=== PATIENT | female | born 1970 | race Caucasian/White ===

== ENCOUNTER 2020-02-08 09:26 | Emergency (ER) | payer OTHER, SELFPAY | END 2020-02-08 09:48 | disposition home or self-care (01) | LOC: ERS 09:26 | DX: R05 Cough (principal); Z20.828 Contact with and (suspected) exposure to other viral communicable diseases | CPT/HCPCS: 87635; 99283; U0003 ==

== ENCOUNTER 2020-05-14 07:36 | Emergency (ER) | payer OTHER, SELFPAY ==
[2020-05-14 17:54] LABS: SARS-CoV-2 MS2 Positive; SARS-CoV-2 N Gene Positive; SARS-CoV-2 S Gene Negative; SARS-CoV-2 by NAA DETECTED (NotDetected); SARS-CoV-2 orf1ab Positive
== END 2020-05-14 08:28 | disposition home or self-care (01) ==
LOC: ERS 07:36
DX: U07.1 COVID-19 (principal); I10 Essential (primary) hypertension
CPT/HCPCS: 87635; 99284; U0003

== ENCOUNTER 2020-05-17 21:19 | Observation (INO) | payer OTHER, SELFPAY ==
[2020-05-17] MEDS ORDERED: Ketorolac Tromethamine 30 MG/ML VIAL ONE (22:14)
[2020-05-17 22:21] LABS: BHCG - Serum Negative (NEGATIVE); Pregs Control Background? CLEAR/WHITE (CLR/WHITE); Pregs Control Bar Appear? YES (CONTROL BAR)
[2020-05-17 22:33] LABS: #Basophils 0.1 thou/uL (0.0-0.2); #Eosinphils 0.2 thou/uL (0.0-0.7); #Monocytes 0.8 thou/uL (0.11-0.59); #Neutrophils 5.4 thou/uL (1.40-6.50); %Basophils 0.8 % (0.0-1.0); %Eosinophils 2.7 % (0.0-10.0); %Lymphocytes 23.6 % (21.0-51.0); %Monocytes 9.5 % (0.0-10.0); %Neutrophils 63.4 % (42.0-75.0); Hemoglobin 12.1 g/dL (12.0-16.0); Mean Corpuscular Hemoglobin 27.1 pg (27.0-31.0); Mean Corpuscular Volume 84.6 fL (78.0-98.0); Mean Platelet Volume 8.9 fL (7.4-10.4); Platelet Count 210 thou/uL (130-400); RBC Distribution Width 12.8 % (11.5-14.5); Red Blood Cell (RBC) Count 4.49 mill/uL (4.20-5.40); White Blood Cell (WBC) Count 8.5 thou/uL (4.8-10.8)
[2020-05-17 22:55] LABS: ALT (SGPT) 15 U/L (8-55); AST (SGOT) 18 U/L (5-34); Albumin 3.9 g/dL (3.5-5.0); Alkaline Phosphatase 35 U/L (40-110); Anion Gap 14 mmol/L (10-20); BUN (Urea Nitrogen) 22 mg/dL (7.0-18.7); Bilirubin, Total 0.4 mg/dL (0.2-1.2); Calc. Creatinine Clearance 0 mL/min (70-130); Calcium 8.7 mg/dL (7.8-10.44); Carbon Dioxide 23 mmol/L (22-29); Chloride 107 mmol/L (98-107); Estimated GFR-MDRD 59; Globulin 2.9 g/dL (2.4-3.5); Glucose 110 mg/dL (70-105); Potassium 3.9 mmol/L (3.5-5.1); Protein, Total 6.8 g/dL (6.0-8.3); Sodium 140 mmol/L (136-145)
[2020-05-18 02:00] LABS: Troponin I 0.029 ng/mL (< 0.028)
[2020-05-18] MEDS ORDERED: Nitroglycerin 0.4 MG TAB (25 Tab Bottle) SL PRN (03:31)
--- NOTE | 2020-05-18 03:40 | PDOC.HHP ---
Hospitalist HPI - History of Present Illness Chest pain History of Present Illness: 49-year-old patient with a history of hypertension and a current smoker presented to the emergency department with a complaint of sudden onset of chest pain a couple of hours before presentation. Patient described left-sided anterior chest pain of sudden onset, maximum intensity 10/10, nonradiating, no known relieving or aggravating factors. Patient states that sublingual nitroglycerin did not relieve the pain. Her pain was relieved by Toradol injection given in the ED. patient initial troponin was normal but got elevated on the second set. EKG showed no significant ischemic changes. Chest x-ray Shows no acute disease. Patient's cardiac risk factors include hypertension and smoking. Patient tested positive for COVID-19 last week.She is placed under observation for acute coronary syndrome rule out. Hospitalist ROS - Review of Systems Other: Except as documented, all other systems reviewed and negative. Hospitalist History - Past Medical History Cardiac: reports: HTN - Past Surgical History Past Surgical History: reports: Tonsillectomy - Family History Family History: reports: diabetes mellitus (Mother) - Social History Smoking Status: Current every day smoker Alcohol: reports: None Drugs: reports: none Living Situation: With Family - Exam Eye: PERRL, anicteric sclera ENT: normocephalic atraumatic, no oropharyngeal lesions, moist mucosa Neck: supple, symmetric, no JVD Heart: RRR, no murmur, no gallops Respiratory: CTAB, no wheezes, no rales Gastrointestinal: soft, non-tender, non-distended, normal bowel sounds Extremities: no cyanosis, no clubbing, no edema Skin: normal turgor, no rashes Neurological: cranial nerve grossly intact, no weakness, no focal deficits Musculoskeletal: normal tone, normal strength Psychiatric: normal affect, normal behavior, A&O x 3 Hospitalist Results - Labs Result Diagrams: 05/17/20 22:21 05/17/20 22:21 Lab results: WBC 8.5 thou/uL (4.8-10.8) 05/17/20 22:21 Hgb 12.1 g/dL (12.0-16.0) 05/17/20 22:21 Hct 38.0 % (36.0-47.0) 05/17/20 22:21 MCV 84.6 fL (78.0-98.0) 05/17/20 22:21 Plt Count 210 thou/uL (130-400) 05/17/20 22:21 Neutrophils % 63.4 % (42.0-75.0) 05/17/20 22:21 Sodium 140 mmol/L (136-145) 05/17/20 22:21 Potassium 3.9 mmol/L (3.5-5.1) 05/17/20 22:21 Chloride 107 mmol/L (98-107) 05/17/20 22:21 Carbon Dioxide 23 mmol/L (22-29) 05/17/20 22:21 BUN 22 mg/dL (7.0-18.7) H 05/17/20 22:21 Creatinine 1.00 mg/dL (0.6-1.1) 05/17/20 22:21 Glucose 110 mg/dL (70-105) H 05/17/20 22:21 Calcium 8.7 mg/dL (7.8-10.44) 05/17/20 22:21 Total Bilirubin 0.4 mg/dL (0.2-1.2) 05/17/20 22:21 AST 18 U/L (5-34) 05/17/20 22:21 ALT 15 U/L (8-55) 05/17/20 22:21 Alkaline Phosphatase 35 U/L (40-110) L 05/17/20 22:21 Troponin I 0.029 ng/mL (< 0.028) H 05/18/20 01:26 Serum Total Protein 6.8 g/dL (6.0-8.3) 05/17/20 22:21 Albumin 3.9 g/dL (3.5-5.0) 05/17/20 22:21 - Radiology Interpretation Chest x-ray Status: image reviewed by me (No acute intracranial process.) Hospitalist H&P A/P - Problem (1) Chest pain Code(s): R07.9 - CHEST PAIN, UNSPECIFIED Status: Acute (2) NSTEMI (non-ST elevated myocardial infarction) Code(s): I21.4 - NON-ST ELEVATION (NSTEMI) MYOCARDIAL INFARCTION Status: Acute (3) Hypertension Code(s): I10 - ESSENTIAL (PRIMARY) HYPERTENSION Status: Acute (4) Tobacco use Code(s): Z72.0 - TOBACCO USE Status: Acute (5) COVID-19 virus infection Code(s): U07.1 - COVID-19 Status: Acute - Plan Plan: Place under observation. Continue to trend troponin Treat with full dose Lovenox Obtain echocardiogram Cardiology consult Blood pressure control-started metoprolol 12.5 mg twice daily. Check lipid profile.
[2020-05-18 04:55] LABS: Cardiac Risk 4.9 (Less than 4.5)
--- NOTE | 2020-05-18 07:25 | RAD ---
PORTABLE CHEST: Date: 05/17/2020 HISTORY: Chest pain. FINDINGS: Lung cantu are clear. No infiltrate or vascular congestion. Heart and mediastinum unremarkable. IMPRESSION: No acute process. POS: AGW
[2020-05-18 08:04] LABS: Troponin I 0.147 ng/mL (< 0.028)
[2020-05-18] MEDS ORDERED: Enoxaparin Sodium 40 MG/0.4 ML SYRINGE SC SCH (09:00)
[2020-05-18] MEDS ORDERED: Enoxaparin Sodium 80 MG/0.8 ML SYRINGE ONE (10:48)
[2020-05-18] MEDS ORDERED: Metoprolol Tartrate 25 MG TAB ONE (10:48)
[2020-05-18] MEDS ORDERED: Aspirin 325 MG TAB ONE (10:48)
[2020-05-18] MEDS: Enoxaparin Sodium 80 MG/0.8 ML SYRINGE SC SCH ×2 (11:01→22:08)
[2020-05-18] MEDS: Aspirin 325 mg Enteric Coated Tablet PO SCH (11:01)
[2020-05-18] MEDS: Metoprolol Tartrate 25 MG TAB PO SCH ×2 (11:02→22:08)
[2020-05-18 16:48] VITALS: BMI 39.6
[2020-05-18] MEDS ORDERED: Acetaminophen 325 MG TAB PO PRN (17:01)
[2020-05-18] MEDS ORDERED: Acetaminophen 500 MG TAB PO SCH (17:15)
--- NOTE | 2020-05-19 01:11 | CON ---
DATE OF CONSULTATION: 05/18/2020 REASON FOR CONSULTATION: Chest pain, COVID infection, slight increased troponin level. HISTORY OF PRESENT ILLNESS: Ms. Rios is a 49-year-old woman. Last week, she had the fever and just generally did not feel well. She had the fever for several days. She came in actually , got tested for COVID and it ended up coming back positive. She came back to the hospital on this occasion because she had a left-sided chest pain. She says it did hurt worse with breath, it is better now. Toradol is very helpful. The initial troponin was negative, but the followup was positive. EKG showed no ischemic changes. PAST HISTORY: Hypertension and smoking. REVIEW OF SYSTEMS: CONSTITUTIONAL: No significant weight gain or loss. VISION: No changes. HEARING: No changes. PULMONARY: No cough or wheezing. GASTROINTESTINAL: No nausea, vomiting, or diarrhea. SKIN: No rashes. NEUROLOGIC: No unilateral weakness or numbness. PSYCHIATRIC: No unusual depression or anxiety. PHYSICAL EXAMINATION: GENERAL: This is a pleasant 49-year-old woman, in no distress. VITAL SIGNS: Blood pressure 146/74, pulse 60 and regular. LUNGS: Clear. CARDIAC: Normal S1 and normal S2. ABDOMEN: Soft and nontender. EXTREMITIES: Warm and dry. No clubbing or cyanosis. There is no edema. PERTINENT LABORATORY DATA: The EKG showed no acute changes. She had sinus rhythm. Peak troponin was 0.147. ASSESSMENT: 1. Recent COVID infection. 2. Increased troponin level. 3. Chest pain, which sounded more pleuritic. PLAN: 1. Continue Lovenox. 2. Recheck troponin level tomorrow. 3. Agree with aspirin. We will follow with you. Job ID: [id number]
[2020-05-19 05:09] LABS: Troponin I 0.071 ng/mL (< 0.028)
--- NOTE | 2020-05-19 07:34 | PDOC.HOSPP ---
- Subjective Encounter Date: 05/18/20 Encounter Time: 17:00 Subjective: pt up in bed complains of headache - Objective Vital Signs & Weight: Vital Signs (12 hours) Temp Pulse Resp BP BP Pulse Ox 05/19/20 03:29 98.5 F 85 17 134/76 97 05/18/20 22:10 14 134/80 Weight Weight 217 lb 2.485 oz I&O: 05/18/20 05/19/20 05/20/20 06:59 06:59 06:59 Intake Total 550 Output Total 750 Balance -200 Result Diagrams: 05/17/20 22:21 05/17/20 22:21 Hospitalist ROS - Review of Systems Cardiovascular: denies: chest pain, palpitations, orthopnea, paroxysmal noc. dyspnea, edema, light headedness, other Gastrointestinal: denies: nausea, vomiting, abdominal pain, diarrhea, constipation, melena, hematochezia, other Genitourinary: denies: dysuria, frequency, incontinence, hematuria, retention, other - Medication Medications: Active Medications Generic Name Dose Route Start Last Admin Trade Name Danielq PRN Reason Stop Dose Admin Aspirin 325 mg 05/18/20 09:00 05/18/20 11:01 Aspirin 325 Mg Enteric Coated Tablet PO 325 mg DAILY RODO Administration Enoxaparin Sodium 80 mg 05/18/20 09:00 05/18/20 22:08 Enoxaparin Sodium 80 Mg/0.8 Ml Syringe SC 80 mg 0900,2100 [facility] [place] Administration Metoprolol Tartrate 12.5 mg 05/18/20 09:00 05/18/20 22:08 Metoprolol Tartrate 25 Mg Tab PO 12.5 mg BID RODO Administration - Exam Neck: negative: supple, symmetric, no JVD, no thyromegaly, no lymphadenopathy, no carotid bruit, JVD Heart: negative: RRR, no murmur, no gallops, no rubs, normal peripheral pulses, irregular, diminshed peripheral pulses, murmur present, II/IV, III/IV Respiratory: negative: CTAB, no wheezes, no rales, no ronchi, normal chest expansion, no tachypnea, normal percussion, rales, rhonchi, tachypneic, wheezes Gastrointestinal: negative: soft, non-tender, non-distended, normal bowel sounds, no palpable masses, no hepatomegaly, no splenomegaly, no bruit, no guarding, no rigidity, tender to palpation, distended, diminished bowl sounds, voluntary guarding Hosp A/P (1) COVID-19 virus infection Code(s): U07.1 - COVID-19 Status: Acute (2) Chest pain Code(s): R07.9 - CHEST PAIN, UNSPECIFIED Status: Acute (3) Hypertension Code(s): I10 - ESSENTIAL (PRIMARY) HYPERTENSION Status: Acute (4) Tobacco use Code(s): Z72.0 - TOBACCO USE Status: Acute - Plan will continue asa/AC for now. she is on room air no need for steroids. will get crp. cardio consulted will trend trops. pt is a smoker and has not been taking her bp meds for the past month since she ran out.
[2020-05-19] MEDS: Aspirin 325 mg Enteric Coated Tablet PO SCH (08:51)
[2020-05-19] MEDS: Enoxaparin Sodium 80 MG/0.8 ML SYRINGE SC SCH ×2 (08:51→17:54)
[2020-05-19] MEDS: Metoprolol Tartrate 25 MG TAB PO SCH (08:51)
[2020-05-19] MEDS: FLU VACC QS2020-21(6MOS UP)/PF 60 MCG/0.5 ML SYRINGE IM ONE ×2 (08:52→09:24)
--- NOTE | 2020-05-19 16:23 | PDOC.HOSPP ---
- Subjective Encounter Date: 05/19/20 Encounter Time: 16:21 Subjective: Patient up in bed states that she feels well. - Objective Vital Signs & Weight: Vital Signs (12 hours) Temp Pulse Resp BP Pulse Ox 05/19/20 11:42 98 F 65 18 140/81 96 05/19/20 09:02 98.5 F 61 20 167/87 H 99 Weight Admit Weight 181 lb 6.4 oz Weight 217 lb 2.485 oz I&O: 05/18/20 05/19/20 05/20/20 06:59 06:59 06:59 Intake Total 930 Output Total 750 Balance 180 Result Diagrams: 05/17/20 22:21 05/17/20 22:21 Hospitalist ROS - Review of Systems Respiratory: denies: cough, dry, shortness of breath, hemoptysis, SOB with excertion, pleuritic pain, sputum, wheezing, other Cardiovascular: denies: chest pain, palpitations, orthopnea, paroxysmal noc. dyspnea, edema, light headedness, other Gastrointestinal: denies: nausea, vomiting, abdominal pain, diarrhea, constipation, melena, hematochezia, other Genitourinary: denies: dysuria, frequency, incontinence, hematuria, retention, other - Medication Medications: Active Medications Generic Name Dose Route Start Last Admin Trade Name Freq PRN Reason Stop Dose Admin Aspirin 325 mg 05/18/20 09:00 05/19/20 08:51 Aspirin 325 Mg Enteric Coated Tablet PO 325 mg DAILY RODO Administration Enoxaparin Sodium 80 mg 05/18/20 09:00 05/19/20 08:51 Enoxaparin Sodium 80 Mg/0.8 Ml Syringe SC 80 mg 0900,2100 RODO Administration Metoprolol Tartrate 12.5 mg 05/18/20 09:00 05/19/20 08:51 Metoprolol Tartrate 25 Mg Tab PO 12.5 mg BID RODO Administration - Exam Neck: negative: supple, symmetric, no JVD, no thyromegaly, no lymphadenopathy, no carotid bruit, JVD Heart: negative: RRR, no murmur, no gallops, no rubs, normal peripheral pulses, irregular, diminshed peripheral pulses, murmur present, II/IV, III/IV Respiratory: negative: CTAB, no wheezes, no rales, no ronchi, normal chest expansion, no tachypnea, normal percussion, rales, rhonchi, tachypneic, wheezes Gastrointestinal: negative: soft, non-tender, non-distended, normal bowel sounds, no palpable masses, no hepatomegaly, no splenomegaly, no bruit, no guarding, no rigidity, tender to palpation, distended, diminished bowl sounds, voluntary guarding Hosp A/P (1) COVID-19 virus infection Code(s): U07.1 - COVID-19 Status: Acute (2) Chest pain Code(s): R07.9 - CHEST PAIN, UNSPECIFIED Status: Acute (3) Hypertension Code(s): I10 - ESSENTIAL (PRIMARY) HYPERTENSION Status: Acute (4) Tobacco use Code(s): Z72.0 - TOBACCO USE Status: Acute - Plan will continue asa/AC for now. she is on room air no need for steroids. will get crp. cardio consulted will trend trops. pt is a smoker and has not been taking h er bp meds for the past month since she ran out. 05/19 patient up in bed states that she feels well. Will talk with cardiology if okay may possible discharge home today. She is not requiring any oxygen currently.
[2020-05-19 16:49] VITALS: BP 151/88; TEMP 98.6
== END 2020-05-19 19:06 | disposition home or self-care (01) ==
LOC: ERS 21:19 → ERHOLD 05-18 03:23 → 2SW 05-18 16:47
PROVIDERS: ADMIT Internal Medicine; ATTEND Internal Medicine
DX: U07.1 COVID-19 (principal); R07.9 Chest pain, unspecified; I10 Essential (primary) hypertension; R77.8 Other specified abnormalities of plasma proteins; F17.210 Nicotine dependence, cigarettes, uncomplicated; I21.4 Non-ST elevation (NSTEMI) myocardial infarction; Z91.14 Patient's other noncompliance with medication regimen
CPT/HCPCS: 36415; 71045; 80053; 80061; 84484; 84703; 85025; 85379; 86140; 90471; 90662; 93005; 96372; 96374; G0008; G0378; J1650; J1885

== ENCOUNTER 2023-06-02 14:22 | Observation (INO) | payer OTHER ==
[2023-06-02 15:17] LABS: #Basophils 0.1 thou/uL (0.0-0.2); #Eosinphils 0.4 thou/uL (0.0-0.7); #Monocytes 0.7 thou/uL (0.11-0.59); #Neutrophils 3.9 thou/uL (1.40-6.50); %Basophils 0.7 % (0.0-1.0); %Eosinophils 4.9 % (0.0-10.0); %Lymphocytes 30.2 % (21.0-51.0); %Monocytes 9.1 % (0.0-10.0); %Neutrophils 54.8 % (42.0-75.0); Hematocrit 42.4 % (36.0-47.0); Hemoglobin 14.2 g/dL (12.0-16.0); Mean Corpuscular HGB CONC 33.5 g/dL (32.0-36.0); Mean Corpuscular Hemoglobin 28.6 pg (27.0-31.0); Mean Corpuscular Volume 85.5 fl (78.0-98.0); Mean Platelet Volume 10.4 fL (7.4-10.4); Platelet Count 152 10x3/uL (130-400); RBC Distribution Width 13.2 % (11.5-14.5); Red Blood Cell (RBC) Count 4.96 mill/uL (4.20-5.40); White Blood Cell (WBC) Count 7.2 10x3/uL (4.8-10.8)
[2023-06-02 15:41] LABS: ALT (SGPT) 22 U/L (8-55); AST (SGOT) 23 U/L (5-34); Albumin 4.6 g/dL (3.5-5.0); Alkaline Phosphatase 51 U/L (40-110); Anion Gap 15 mmol/L (10-20); BUN (Urea Nitrogen) 18 mg/dL (9.8-20.1); Bilirubin, Total 0.7 mg/dL (0.2-1.2); Calc. Creatinine Clearance 0 mL/min (70-130); Calcium 9.9 mg/dL (7.8-10.44); Carbon Dioxide 22 mmol/L (22-29); Chloride 107 mmol/L (98-107); Estimated GFR 65; Globulin 3.2 g/dL (2.4-3.5); Glucose 96 mg/dL (70-105); Potassium 4.1 mmol/L (3.5-5.1); Protein, Total 7.8 g/dL (6.0-8.3); Sodium 140 mmol/L (136-145)
[2023-06-02 15:53] LABS: Troponin I Less than 0.010 ng/mL (< 0.028)
[2023-06-02] MEDS ORDERED: Nitroglycerin 0.4 MG TAB (25 Tab Bottle) SL PRN (16:47)
[2023-06-02] MEDS ORDERED: Aspirin Chewable 81 MG TAB ONE (16:47)
[2023-06-02] MEDS ORDERED: Morphine 2 MG/ML VIAL ONE (16:48)
[2023-06-02] MEDS ORDERED: Morphine 4 MG/ML VIAL SLOW IVP PRN (17:17)
[2023-06-02] MEDS ORDERED: Morphine 2 MG/ML VIAL SLOW IVP PRN (17:17)
[2023-06-02 18:56] LABS: Troponin I Less than 0.010 ng/mL (< 0.028)
[2023-06-02] MEDS ORDERED: Atorvastatin Calcium 40 MG TAB PO SCH (21:00)
[2023-06-02 21:06] VITALS: BMI 36.6
[2023-06-02] MEDS: Acetaminophen 325 MG TAB PO PRN (21:14)
[2023-06-02 21:55] LABS: Troponin I Less than 0.010 ng/mL (< 0.028)
[2023-06-03 04:21] LABS: #Basophils 0.1 thou/uL (0.0-0.2); #Eosinphils 0.4 thou/uL (0.0-0.7); #Monocytes 0.7 thou/uL (0.11-0.59); #Neutrophils 3.8 thou/uL (1.40-6.50); %Basophils 0.8 % (0.0-1.0); %Eosinophils 4.9 % (0.0-10.0); %Lymphocytes 30.6 % (21.0-51.0); %Monocytes 9.9 % (0.0-10.0); %Neutrophils 53.4 % (42.0-75.0); Hematocrit 39.7 % (36.0-47.0); Hemoglobin 12.8 g/dL (12.0-16.0); Mean Corpuscular HGB CONC 32.2 g/dL (32.0-36.0); Mean Corpuscular Hemoglobin 28.1 pg (27.0-31.0); Mean Corpuscular Volume 87.3 fl (78.0-98.0); Platelet Count 207 10x3/uL (130-400); RBC Distribution Width 13.3 % (11.5-14.5); Red Blood Cell (RBC) Count 4.55 mill/uL (4.20-5.40); White Blood Cell (WBC) Count 7.1 10x3/uL (4.8-10.8)
[2023-06-03 04:59] LABS: Anion Gap 12 mmol/L (10-20); BUN (Urea Nitrogen) 21 mg/dL (9.8-20.1); Calc. Creatinine Clearance 92 mL/min (70-130); Carbon Dioxide 27 mmol/L (22-29); Chloride 103 mmol/L (98-107); Estimated GFR 65; Glucose 103 mg/dL (70-105); Potassium 3.8 mmol/L (3.5-5.1); Sodium 138 mmol/L (136-145)
[2023-06-03 07:35] VITALS: BP 117/55; TEMP 97.7
[2023-06-03] MEDS ORDERED: Aspirin Chewable 81 MG TAB PO SCH ×2 (09:00)
[2023-06-03] MEDS ORDERED: Losartan 25 MG TAB PO SCH (09:00)
[2023-06-03] MEDS ORDERED: ADENOSINE 60 MG/20 ML SDV ONE (09:56)
[2023-06-03] MEDS: Acetaminophen 325 MG TAB PO PRN (14:03)
== END 2023-06-03 15:39 | disposition home or self-care (01) ==
LOC: SUATTDRO 14:22 → ERS 14:22 → 2SW 16:47
PROVIDERS: ADMIT Family Medicine; ATTEND Hospitalist
DX: R07.89 Other chest pain (principal); I10 Essential (primary) hypertension; E78.5 Hyperlipidemia, unspecified; M54.6 Pain in thoracic spine; G89.29 Other chronic pain; Z87.59 Personal history of other complications of pregnancy, childbirth and the puerperium; Z90.89 Acquired absence of other organs; Z87.891 Personal history of nicotine dependence; Z79.82 Long term (current) use of aspirin; Z79.899 Other long term (current) drug therapy
CPT/HCPCS: 36415; 71045; 78452; 80048; 80053; 84484; 85025; 85379; 93005; 93017; 94760; 96372; 96374; A9500; G0378; J0153; J1650; J2272